=== PATIENT | female | born 1975 | race Caucasian/White ===

== ENCOUNTER 2019-12-14 01:12 | Outpatient (CLI) | payer OTHER, SELFPAY ==
[2019-12-14 18:04] LABS: SARS-CoV-2 RNA PCR Negative
== END 2019-12-14 01:13 | disposition home or self-care (01) ==
LOC: ANHCOVIDDT 01:12
PROVIDERS: PCP Family Medicine; Visit Provider Obstetrics & Gynecology
DX: Z01.812 Encounter for preprocedural laboratory examination (principal); Z20.828 Contact with and (suspected) exposure to other viral communicable diseases
CPT/HCPCS: 87635; C9803; U0003

== ENCOUNTER 2019-12-18 00:47 | Day surgery (SDC) | payer OTHER, SELFPAY ==
[2019-12-05 14:40] VITALS: BMI 23.4
--- NOTE | 2019-12-17 13:46 | P.PNAN_ITS ---
Anes - Initial Pre Proc Eval Procedure: Operation Date: 12/18/19 13:00 Proposed Procedures p Diagnostic Laparoscopy, Hysteroscopy, Dilation And Curettage, Possible Lysis Of Adhesions - Carrillo Iverson MD Date/Time: 12/17/19 13:46 Surgeon: Carrillo Iverson MD Pre Op Diagnosis: Menometrorrhagia, Endometriosis Patient Data Age: 44 Gender: F Height: 1.75 m Weight: 72 kg Allergies Allergy/AdvReac Type Severity Reaction Status Date / Time No Known Allergies Allergy Verified 12/05/19 15:13 Home Medications Medication Instructions Recorded Confirmed Type bupropion HCl 150 mg PO DAILY 12/05/19 12/05/19 History esomeprazole magnesium [Nexium] 20 mg PO DAILY 12/05/19 12/05/19 History zolpidem 10 mg PO HS 12/05/19 12/05/19 History Patient hx anesthesia problems: none Family hx anesthesia problems: none PMFSH Past Medical History Medical History Chronic GERD Depression Endometriosis Social History Social History Years smoked: 25 Smoking status: Current every day smoker Alcohol intake: never Substance use: never Substance use type: does not use Living arrangements: with family Additional living arrangements comments: [facility] [employer] [facility] Gender identity (if verbalized by the patient): Female Sexual Orientation (if Verbalized by the Patient): Straight or Heterosexual Spiritual care concerns: No Anes - Eval Final PreProcedure Day of Procedure 12/17/19 13:46 Patient weight: normal Heart: regular rate and rhythm Lungs: clear to auscultation and normal air movement Airway: Mallampati scale class II Neurological: alert and oriented Last oral intake: >/= 8 hours ASA classification: II Emergent: no Anesthetic plan: proceed Anesthesia type and monitoring: general ETT Informed Consent: The patient's anesthetic plan and its attendant risks and benefits were discussed with the patient/family/POA. Questions were solicited a nd answers provided to the satisfaction of the patient/family/POA.
[2019-12-18] VITALS (9 sets, daily range): BP systolic 104–131; BP diastolic 71–88; PULSE 70–94; RESP 12–20; TEMP 36.1–36.6; O2SAT 98–100; BMI 23.8
--- NOTE | 2019-12-18 06:50 | PM.IMHP ---
H&P: HPI History of Present Illness Date/Time: 12/18/19 06:50 Chief complaint: Menometrorrhagia, Endometriosis Narrative: Ledy De La Paz is a 44 year old female 012 female presents with multiple complaints. Regarding irregular bleeding stasis cycles are 7-10 days 3-5 days heavy clotting cramping significant amount of discomfort during her menstrual cycles. This has been ongoing long-term problem for her and has seen multiple physicians for these concerns previously. Also relates a severe pelvic pain abdominal pain throughout the month though this is worse with her menstrual cycles. Relates that she has had a laparoscopy in the past which revealed significant adhesions endometriosis for which she was given medic medical treatment that no surgical intervention. Presents today for evaluation of the above. Of note has had ultrasound which showed no significant abnormalities. Review of Systems Review of Systems: All systems reviewed & are unremarkable except as noted in HPI and below PMFSH Past Medical History Medical History Chronic GERD Depression Endometriosis Social History Social History Years smoked: 25 Smoking status: Current every day smoker Alcohol intake: never Substance use: never Substance use type: does not use Living arrangements: with family Additional living arrangements comments: [facility] [employer] [facility] Gender identity (if verbalized by the patient): Female Sexual Orientation (if Verbalized by the Patient): Straight or Heterosexual Spiritual care concerns: No Meds Home Medications and Allergies Home Medications Medication Instructions Recorded Confirmed Type bupropion HCl 150 mg PO DAILY 12/05/19 12/05/19 History esomeprazole magnesium [Nexium] 20 mg PO DAILY 12/05/19 12/05/19 History zolpidem 10 mg PO HS 12/05/19 12/05/19 History Allergies Allergy/AdvReac Type Severity Reaction Status Date / Time No Known Allergies Allergy Verified 12/05/19 15:13 Exam Const: General: cooperative and healthy appearing Resp: Effort & Inspection: normal respiratory effort Cardio: Rate: regular rate Rhythm: regular rhythm GI: Inspection: normal to inspection : Speculum Exam - Vagina: normal appearance of the vagina Speculum Exam - Cervix: normal appearance of the cervix Bimanual exam- vagina & uterus: enlarged and Uterine tenderness Bimanual Exam- Adnexa, other: tender Assessment and Plan Assessment and plan (1) Pelvic pain: Code(s): R10.2 - Pelvic and perineal pain Status: Acute (2) Endometriosis: Code(s): N80.9 - Endometriosis, unspecified Status: Acute (3) Menometrorrhagia: Code(s): N92.1 - Excessive and frequent menstruation with irregular cycle Status: Acute Additional Plan 1. Proceed with hysteroscopy with uterine curettings for tissue sampling and to evaluate endometrial cavity. 2. Proceed with laparoscopic evaluation to evaluate extent of endometriosis and/or adhesions. Also will remove and/or treat any of these abnormalities as can be performed today through laparoscopic approach. Patient understands that today's evaluation and intervention may not be definitive for her as the extent of the abnormalities may be more than can be safely and adequately treated through the approach that is being used today.
--- NOTE | 2019-12-18 06:55 | WPDHPUPDATE1 ---
History and Physical Update Update Date/Time: 12/18/19 06:55 History and Physical has been reviewed, including an updated exam of the patient. There are NO changes in the patient's condition. Risks, benefits, and alternatives have been discussed and questions answered. Patient agrees to proceed with procedure.
[2019-12-18] MEDS: KETOROLAC 15 MG/ML VIAL (*BKC) IV PUSH (11:58)
[2019-12-18] MEDS: ACETAMINOPHEN 500 MG TABLET 1000 MG PO (11:58)
--- NOTE | 2019-12-18 13:10 | PM.OP ---
Procedure Note - Brief Procedure Note - Brief Date of procedure: 12/18/19 Pre-op diagnosis: Menometrorrhagia, Endometriosis Post-op diagnosis: other (3. Adhesions 4.endometrial polyp) Procedure performed: 1. Laparoscopy 2. Hysteroscopy 3. Endometrial curettings 4. Polypectomy Description of procedure: patient prepped and draped usual manner for this procedure. Laparoscopic portion procedure was performed 1st with midline trocar placed under direct visualization. Suprapubic incision was also made with trocar placed under direct visualization. Thorough evaluation of the pelvis revealed left ovary to be densely adhered the endometriosis to the left pelvic sidewall over the ureter left tube appeared without abnormality. Right tube appeared dilated with adhesions densely adhered to the back of the uterus as well as to the pelvic sidewall. Endometriosis was noted on the anterior surface of the uterus. And adhesions in the area of the bladder flap. At this point the gas was allowed to escape incisions approximated using 4 Monocryl in a attention was placed to the hysteroscopic portion of this procedure. Hysteroscope was then placed which did reveal endometrial polyp and thickened tissue. Using the polyp forceps this was removed and curettings were obtained. At this point seizure was considered terminated and the patient did well was sent to recovery room in stable condition. Anesthesia: GLMA Surgeon: Carrillo Iverson MD Estimated blood loss (mL): 5 Drains: No Packing: No Pathology: yes Complications: No immediate complications Condition: stable Disposition: PACU Findings: 1. Endometriosis 2. Adhesions 3. Endometrial polyp
[2019-12-18] MEDS: LACTATED RINGERS 1,000 ML 30 ML IV CONT ×2 (13:15→13:45)
--- NOTE | 2019-12-18 13:17 | SUR.OPER ---
1300 ml in 1200 ml out hysteroscope
[2019-12-18] MEDS: fentaNYL CITRATE INJ (*CRX) 100 MCG/2 ML VIAL 25 MCG IV PUSH ×14 (13:23→14:12)
[2019-12-18] MEDS: HYDROmorphone HCL INJ (*CRX) 1 MG/ML SYR 0.5 MG IV PUSH ×4 (13:40→13:55)
[2019-12-18] MEDS: diphenhydrAMINE HCl INJ 50 MG/ML VIAL 12.5 MG IV PUSH (14:07)
[2019-12-18] MEDS: ONDANSETRON INJ 4 MG/2 ML VIAL IV PUSH (14:32)
== END 2019-12-18 15:33 | disposition home or self-care (01) ==
PROVIDERS: PCP Family Medicine; Visit Provider Obstetrics & Gynecology
PROC: 0UDB8ZZ Extraction of Endometrium, Via Natural or Artificial Opening Endoscopic (ICD-10-PCS; CPT 58558; principal; 2019-12-18 13:00)
DX: N92.1 Excessive and frequent menstruation with irregular cycle (principal); N80.3 Endometriosis of pelvic peritoneum; N73.6 Female pelvic peritoneal adhesions (postinfective); N84.0 Polyp of corpus uteri; K21.9 Gastro-esophageal reflux disease without esophagitis; F41.9 Anxiety disorder, unspecified; F32.9 Major depressive disorder, single episode, unspecified; F17.210 Nicotine dependence, cigarettes, uncomplicated; Z88.0 Allergy status to penicillin; Z79.899 Other long term (current) drug therapy
CPT/HCPCS: 58558; 49320; 88305; A9270; J0330; J1100; J1170; J1200; J1885; J2250; J2405; J2704; J3010; J7030; J7120; Q9968

== ENCOUNTER 2020-02-20 22:36 | Emergency (ER) | payer OTHER, SELFPAY ==
--- NOTE | ~2020-02-20 | CT_ITS ---
EXAMINATION: CT abdomen pelvis w con DATE: 02/20/2020 23:55 INDICATION: Right upper quadrant abdominal pain. TECHNIQUE: Computed tomography (CT) of the abdomen and pelvis was performed with 100 mL Omnipaque-350 intravenous contrast. Automated exposure control and iterative reconstruction technique were employe d. The dose-length product was 641.23 mGy-cm. COMPARISON: None FINDINGS: Mild dependent atelectasis in the bilateral lower lobes. Heart size is normal. No pericardial or pleu ral effusion. Minimal intrahepatic and extra hepatic biliary ductal dilation which is within normal l imits post cholecystectomy. Small splenic calcific lesion consistent with old granulomatous disease. Pancreas, bilateral adrenal glands and kidneys are normal. There is mild colonic diverticulosis with a sigmoid predominance. There is no adjacent inflammatory change to suggest diverticulitis. Small b owel and appendix are normal. Small fat-containing umbilical hernia. Bladder and anteverted uterus ar e normal. There are couple subcentimeter cysts/follicles in the right ovary, one with an incomplete p eripheral enhancing rim likely a collapsing corpus luteum cyst. Larger 3.7 cm left adnexal cyst with increased density posteriorly suggesting a layering hematocrit level consistent with a hemorrhagic cy st No free intraperitoneal gas or fluid. No pathologically enlarged abdominal or pelvic lymphadenopat hy. L1 hemangioma. Moderate spondylosis at L5-S1. IMPRESSION: 1. Bilateral adnexal cysts with 10 mm likely corpus luteum cyst on the right and 3.7 cm likely hemorr hagic cyst on the left. Recommend 6-12 week follow-up pelvic ultrasound to document resolution of the suspected left hemorrhagic cyst. 2. Minimal intra and extra hepatic biliary ductal dilation likely related to prior cholecystectomy bu t would correlate with liver function tests. Reviewed, dictated and finalized at location [facility] [place] IMPRESSION: 1. Bilateral adnexal cysts with 10 mm likely corpus luteum cyst on the right an d 3.7 cm likely hemorrhagic cyst on the left. Recommend 6-12 week follow-up pel vianey ultrasound to document resolution of the suspected left hemorrhagic cyst. 2. Minimal intra and extra hepatic biliary ductal dilation likely related to pr ior cholecystectomy but would correlate with liver function tests.
[2020-02-20 22:40] VITALS: BP 141/93; PULSE 88; RESP 14; TEMP 36.7; O2SAT 100
--- NOTE | 2020-02-20 23:18 | ED.ABDPAIN ---
HPI - Abdominal Pain General Chief Complaint: Abdominal Pain Stated Complaint: abd pain Time Seen by Provider: 02/20/20 22:55 Source: patient Mode of arrival: ambulatory Limitations: no limitations History of Present Illness HPI narrative: Patient is a 44-year-old female who presents complaining of right upper quadrant pain intermittently x1 month. Patient reports increasing constant pain starting this afternoon. She reports intermittent nausea without vomiting, denies diarrhea Related Data Home Medications Medication Instructions Recorded Confirmed bupropion HCl 150 mg PO DAILY 12/05/19 12/18/19 esomeprazole magnesium [Nexium] 20 mg PO DAILY 12/05/19 12/18/19 zolpidem 10 mg PO HS 12/05/19 12/18/19 Allergies Allergy/AdvReac Type Severity Reaction Status Date / Time Penicillins Allergy Severe Anaphylaxis Verified 12/18/19 11:38 Review of Systems Review of Systems: Narrative: CONSTITUTIONAL: Denies fever, chills, or sweats. EYES: Denies visual changes, redness, or discharge. ENT: Denies rhinorrhea, congestion, sore throat, or otalgia. CARDIOVASCULAR: Denies chest pain, palpitations, or edema. RESPIRATORY: Denies cough or dyspnea. GASTROINTESTINAL: Reports abdominal pain, nausea, vomiting, or diarrhea. GENITOURINARY: Denies dysuria or hematuria. SKIN: Denies rash or itching. MUSCULOSKELETAL: Denies back pain, joint pain, or myalgia. NEUROLOGIC: Denies headache, numbness, dizziness, or weakness. PSYCHIATRIC: Denies anxiety or depression. [facility]LY [facility] Past Medical History Medical History Chronic GERD Depression Endometriosis Surgical History Surgical History Hx of cholecystectomy Social History Social History Years smoked: 25 Smoking status: Current every day smoker Alcohol intake: never Substance use: never Substance use type: does not use Additional living arrangements comments: [facility] [employer] [facility] Gender identity (if verbalized by the patient): Female Spiritual care concerns: No Comments At the time of signature, I have reviewed and agree with nursing past medical, surgical, social, and family history unless otherwise noted. Please see nursing chart for further information. There is no relevant family history pertinent to the presenting complaint. Course Vital Signs Vital signs: Vital Signs Temperature 36.7 C 02/20/20 22:40 Pulse Rate 88 02/20/20 22:40 Respiratory Rate 14 02/20/20 22:40 Blood Pressure 141/93 H 02/20/20 22:40 Pulse Oximetry 100 02/20/20 22:40 Temperature 36.7 C 02/20/20 22:40 Pulse Rate 88 02/20/20 22:40 Respiratory Rate 14 02/20/20 22:40 Blood Pressure 141/93 H 02/20/20 22:40 Pulse Oximetry 100 02/20/20 22:40 MDM - Abdominal Pain MDM Narrative Medical decision making narrative: Patient's labs are unremarkable, CT shows Bilateral adnexal cysts. Discussed with patient the cause of her pain is most likely from endometriosis. Patient instructed to follow-up with Dr. Iverson. Patient is stable for discharge to home with outpatient follow-up as directed. Differential Diagnosis Differential diagnosis: Likely abdominal pain Lab Data Result diagrams: 02/20/20 23:24 02/20/20 23:50 Labs: Lab Results 02/20/20 02/20/20 02/20/20 Range/Units 23:24 23:24 23:50 WBC 8.8 (4.5-10.0) K/mm3 RBC 4.38 (4.2-5.4) M/mm3 Hgb 11.0 L (12.0-15.0) g/dL Hct 34.9 L (37.0-47.0) % MCV 79.7 L (80-100) fl MCH 25.1 L (26-34) pg MCHC 31.5 L (32-36) g/dl RDW 16.1 H (11.5-14.5) % Plt Count 345 (150-375) k/mm3 MPV 9.4 (7.4-10.4) fl Immature Gran % (Auto) 0.3 (0-0.5) % Neut % (Auto) 63.4 (45.5-73.1) % Lymph % (Auto) 23.5 (18.3-44.2) % [place] % (Auto) 10.3 H (2.6-8.5) % Eos % (Auto) 1.4 (0-4.4) %
[2020-02-20] MEDS: SODIUM CHLORIDE 0.9% IV 1,000 ML 999 ML IV CONT (23:26)
[2020-02-20 23:41] LABS: Basophils Absolute Auto 0.1 K/mm3 (0.0-0.1); Basophils Percent Auto 1.1 % (0.2-1.2); Eosinophils Absolute Auto 0.1 K/mm3 (0-0.3); Eosinophils Percent Auto 1.4 % (0-4.4); Hematocrit 34.9 % (37.0-47.0); Immature Granulocyte Absolute 0.03 K/mm3 (0.00-0.031); Immature Granulocyte Percent A 0.3 % (0-0.5); Lymphocytes Absolute Auto 2.06 K/mm3 (0.9-3.2); Lymphocytes Percent Auto 23.5 % (18.3-44.2); Mean Corpuscular HGB Conc 31.5 g/dl (32-36); Mean Corpuscular Hemoglobin 25.1 pg (26-34); Mean Corpuscular Volume 79.7 fl (80-100); Mean Platelet Volume 9.4 fl (7.4-10.4); Monocytes Absolute Auto 0.9 K/mm3 (0.1-0.6); Monocytes Percent Auto 10.3 % (2.6-8.5); Neutrophils Absolute Auto 5.5 K/mm3 (1.3-6.7); Neutrophils Percent Auto 63.4 % (45.5-73.1); Platelet Count Result 345 k/mm3 (150-375); Red Blood Count 4.38 M/mm3 (4.2-5.4); Red Cell Distribution Width 16.1 % (11.5-14.5); White Blood Count 8.8 K/mm3 (4.5-10.0)
[2020-02-20 23:52] LABS: Estimated CRCL calculation 68 ml/min; Estimated Glomerular Filt Rate > 60
[2020-02-20 23:53] LABS: Alanine Aminotransferase 19 U/L (4-35); Albumin Level 4.4 g/dL (3.5-5.1); Alkaline Phosphatase 54 U/L (38-126); Anion Gap 7 mmol/L (8-16); Aspartate Amino Transferase 22 U/L (14-36); Bilirubin,Total 0.2 mg/dL (0.2-1.3); Blood Urea Nitrogen 16 mg/dL (7-17); Carbon Dioxide 27 mmol/L (22-30); Chloride 107 mmol/L (98-107); Estimated CRCL calculation 68 ml/min; Estimated Glomerular Filt Rate > 60; Glucose 108 mg/dL (65-105); Lipase 57 U/L (23-300); Potassium 3.5 mmol/L (3.4-5.0); Sodium 141 mmol/L (137-145)
[2020-02-21 00:50] LABS: Add Urine Microscopic? NO; Appearance Urine Clear (Clear); Bilirubin Urine Negative (Negative); Blood Urine Negative (Negative); Color Urine Straw (Yellow); Glucose Urine UA Negative (Negative); Ketones Urine Negative (Negative); Leukocyte Esterase Ur Negative LEU/UL (Negative); Mucus Urine Rare /lpf; Nitrate Urine Negative (Negative); Protein Urine Negative (Negative); RBC Urine 0-2 /hpf (0-2); Specific Grav Ur 1.051 (1.001-1.035); Squamous Epithelial Cell Urine Many /hpf (Few); Urobilinogen Urine Negative mg/dL (<2.0); WBC Urine 0-3 /hpf
[2020-02-21 01:15] VITALS: BP 128/89; PULSE 74; RESP 16; O2SAT 100
== END 2020-02-21 01:15 | disposition home or self-care (01) ==
PROVIDERS: Emergency Provider Nurse Practitioner; PCP Family Medicine
DX: R10.11 Right upper quadrant pain (principal); R10.2 Pelvic and perineal pain; K21.9 Gastro-esophageal reflux disease without esophagitis; N80.9 Endometriosis, unspecified; F32.9 Major depressive disorder, single episode, unspecified; F17.200 Nicotine dependence, unspecified, uncomplicated; N94.89 Other specified conditions associated with female genital organs and menstrual cycle; R93.2 Abnormal findings on diagnostic imaging of liver and biliary tract
CPT/HCPCS: 36415; 74177; 80053; 81003; 81025; 83690; 85025; 96361; 96365; 99284; J0131; J7030; Q9967